=== PATIENT | male | born 1955 | race Caucasian/White ===

== ENCOUNTER 2022-06-23 15:03 | Emergency (ER) | payer OTHER ==
[~2022-06-23] VITALS: Ht 190.5 cm; Wt 106.6 kg
[~2022-06-23 15:03] MED LIST: CELEBREX50 MG; VISTARIL50 MG PO
== END 2022-06-23 20:36 | disposition home or self-care (01) ==
LOC: ER 15:03
DX: R21 Rash and other nonspecific skin eruption (principal)

== ENCOUNTER 2024-09-11 10:13 | Inpatient (IN) | payer OTHER ==
[~2024-09-11] VITALS: Ht 182.9 cm; Wt 79.4 kg
[2024-09-11] MEDS ORDERED: TAMSULOSIN HCL0.4 MG PO (10:43)
[2024-09-11 11:30] LABS: HEMOGLOBIN 14.8 g/dL (13-16.00); MEAN CELL VOLUME 88.1 fL (80.0-100.00); MEAN CORPUSCULAR HEMOGLOBIN 31.1 pg (27.00-32.0); MEAN CORPUSCULAR HGB CONC 35.3 g/dl (32.0-36.0); PLATELET COUNT 174 K/uL (150-450); RED BLOOD COUNT 4.77 M/uL (4.00-6.00); RED CELL DISTRIBUTION WIDTH 13.4 % (11.5-14.5)
[2024-09-11 11:36] LABS: CALCIUM 9.3 mg/dL (8.5-10.1); CREATININE SERUM 0.95 mg/dL (0.70-1.30); GFR 78.37; POTASSIUM 4.36 mEq/L (3.5-5.1)
[2024-09-11] MEDS ORDERED: NITROGLYCERIN IN 5 % DEXTROSE 250 ML IV SCH (14:45)
[2024-09-11] MEDS ORDERED: FAMOTIDINE/PF 20 MG in 0.9 % SODIUM CHLORIDE 8 ML IV PUSH STA (14:57)
[2024-09-11] MEDS ORDERED: NITROGLYCERIN IN 5 % DEXTROSE 50 MG/250 ML BOTTLE IV ONE (15:24)
[2024-09-11] MEDS ORDERED: FAMOTIDINE/PF 20 MG/2 ML VIAL ONE (15:24)
[2024-09-11] MEDS ORDERED: ACETAMINOPHEN 325 MG TABLET PO PRN (19:30)
[2024-09-11] MEDS ORDERED: TRAZODONE HCL 50 MG TABLET PO SCH (21:00)
[2024-09-11] MEDS ORDERED: ZOLPIDEM TARTRATE 10 MG TABLET PO SCH (21:00)
[2024-09-11 22:17] LABS: COVID-19 AG NEGATIVE (NEGATIVE)
[2024-09-11 22:36] LABS: URINE APPEARANCE Clear; URINE BILIRRUBIN Negative (NEGATIVE); URINE BLOOD Negative; URINE COLOR Yellow; URINE GLUCOSE Negative (NEGATIVE); URINE KETONE Negative (NEGATIVE); URINE LEUKOCYTE Negative; URINE NITRATE Negative; URINE PROTEIN Negative (NEGATIVE); URINE UROBILINOGEN 0.2 E.U./dl
[2024-09-11 22:39] LABS: URINE BACTERIA 17.1 uL (0.0-1933)
[2024-09-11 22:40] LABS: URINE WBC 1.5 uL (0.0-23.2)
[2024-09-12 00:54] VITALS: BP 90/50; O2SAT 98
[2024-09-12 06:48] LABS: INR 1.04; PARTIAL THROMBOPLASTIN TIME 25.9 SECONDS (22.0-34.0); PROTHROMBIN TIME 11.3 SECONDS (9.0-11.5)
[2024-09-12 07:16] LABS: CHOL HDL RATIO 4.6 (0-5.0)
[2024-09-12 07:56] LABS: CKMB 1.8 NG/ML (0.5-3.6); TSH 1.88 uIU/mL (0.358-3.74)
[2024-09-12] MEDS ORDERED: 0.9 % SODIUM CHLORIDE 1,000 ML IV SCH (09:00)
[2024-09-12] MEDS ORDERED: ENOXAPARIN SODIUM 40 MG/0.4 ML SYRINGE SUBCUTANEO SCH (09:00)
[2024-09-12 09:12] VITALS: BP 110/73
[2024-09-12] MEDS ORDERED: PANTOPRAZOLE SODIUM 40 MG/VIAL VIAL IV SCH (12:00)
[2024-09-12] MEDS ORDERED: ACETAMINOPHEN 500 MG GEL..CAP PO PRN (14:00)
[2024-09-12 18:48] VITALS: BP 118/68
[2024-09-13 01:21] VITALS: BP 102/52
[2024-09-13 09:47] VITALS: BP 102/54; O2SAT 98
[2024-09-13 16:39] VITALS: BP 136/73; O2SAT 98
[2024-09-13] MEDS ORDERED: ASPIRIN 81 MG TABLET.EC PO SCH (20:04)
[2024-09-13] MEDS ORDERED: TICAGRELOR 90 MG TABLET PO SCH (21:00)
[2024-09-14 00:11] VITALS: BP 113/50
[2024-09-14 08:00] VITALS: BP 109/56; O2SAT 95
== END 2024-09-14 16:00 | disposition designated cancer center or children's hospital (05) | DRG 282 ==
LOC: ER 10:13 → MEDJ 19:54
PROVIDERS: Emergency Medicine; General Practice; ADMIT Internal Medicine; ATTEND Internal Medicine
PROC: B246ZZZ Ultrasonography of Right and Left Heart (ICD-10-PCS; principal; 2024-09-11)
PROC: 4A12X4Z Monitoring of Cardiac Electrical Activity, External Approach (ICD-10-PCS; 2024-09-11)
DX: I21.4 Non-ST elevation (NSTEMI) myocardial infarction (principal); R79.89 Other specified abnormal findings of blood chemistry; I10 Essential (primary) hypertension